=== PATIENT | male | born 1955 | race Caucasian/White ===

== ENCOUNTER 2017-01-04 21:13 | Emergency (ER) | payer OTHER ==
[~2017-01-04] VITALS: Ht 177.8 cm; Wt 116.1 kg
[2017-01-04 21:34] LABS: ADD MIUA? NO; BILIRUBIN NEGATIVE; BLOOD NEGATIVE; COLOR YELLOW ((YELLOW)); GLUCOSE (STRIP) NEGATIVE; KETONES NEGATIVE; LEUKOCYTES NEGATIVE; NITRITE NEGATIVE; PROTEIN (STRIP) NEGATIVE; SPECIFIC GRAVITY 1.019 (1.000-1.030); UCUL ADDED? NO
[2017-01-04 22:40] LABS: HEMATOCRIT 37.3 % (38.0-50.0); MCH 31.9 PG (29.0-34.0); MCV 93.7 FL (86-99); MEAN PLAT.VOLUME 10.1 uM^3 (9.0-12.4); PLATELET COUNT 176 K/uL (156-360); RBC DIS.WIDTH-CV 12.3 % (11.8-14.6); RBC DIS.WIDTH-SD 43.1 % (39-53); RED BLOOD COUNT 3.98 M/uL (4.00-5.50); WHITE BLOOD COUNT 8.5 K/uL (4.1-10.2)
[2017-01-04 22:49] LABS: CHLORIDE 103 mEq/L (99-109); POTASSIUM 4.1 mEq/L (3.7-5.4); SODIUM 139 mEq/L (136-147)
[2017-01-04 22:51] LABS: GLUCOSE 91 mg/dL (70-99)
[2017-01-04 22:52] LABS: ANION GAP 11 MEQ/L (2-14)
[2017-01-04 22:53] LABS: TOTAL BILIRUBIN 0.9 mg/dL (0.0-1.0)
[2017-01-04 22:54] LABS: ALKALINE PHOSPHATASE 96 IU/L (3-129)
[2017-01-04 22:55] LABS: GFR ESTIMATE (CALCULATED) > 59 mL/min/
[2017-01-04 22:56] LABS: UREA NITROGEN (BUN) 21 mg/dL (9-23)
[2017-01-04 22:58] LABS: LIPASE 36 U/L (1.0-51.0)
[2017-01-05] MEDS ORDERED: CIPRO500 MG PO (00:54)
[2017-01-05] MEDS ORDERED: FLAGYL500 MG PO (00:54)
[2017-01-05 01:19] VITALS: BP 113/57
== END 2017-01-05 01:21 | disposition home or self-care (01) ==
LOC: EME 21:13
DX: R10.32 Left lower quadrant pain (principal); N62 Hypertrophy of breast
CPT/HCPCS: 74176; 80053; 81003; 83690; 85027; 99281; 99285